=== PATIENT | female | born 1960 | race Caucasian/White ===

== ENCOUNTER 2017-11-21 13:28 | Day surgery (SDC) | payer OTHER, SELFPAY ==
[2017-11-18 10:40] VITALS: BMI 36.8
[2017-11-21 13:59] VITALS: BP 140/75; PULSE 75; RESP 16; TEMP 36.3; O2SAT 100; BMI 36.8
--- NOTE | 2017-11-21 15:34 | PM.PREOP ---
Pre-operative Note Interval Note Pre-op Check: History & Physical Reviewed by Physician
[2017-11-21] MEDS: CEFAZOLIN 2 GM/100 ML FROZ.PIGGY IV (15:39)
[2017-11-21] MEDS: BUPIVACAINE 0.25% W/ EPI 50 ML VIAL INJ (15:53)
--- NOTE | 2017-11-21 15:54 | SUR.OPER ---
Lithotomy on padded OR bed, head on pillow, arms secured on padded arm boards at <90 degrees abduction. Legs secured in padded yellow fins stirrups.
--- NOTE | 2017-11-21 16:39 | PM.GYNOP.1 ---
Operative Date/Time/Diagnoses - Date of procedure: 11/21/17 Time of procedure: 16:00 Pre-op diagnosis: Postmenopausal bleeding, suspected endometrial polyp Post-op diagnosis: other (Endometrial polyps) Procedure: Procedures Operation Date: 11/21/17 14:45 Actual Procedures Side Surgeon p Hysteroscopy D&C, Possible Polypectomy Not Applicable Balbina Orellana MD
--- NOTE | 2017-11-21 16:43 | PM.GYNOP.1 ---
Operative Date/Time/Diagnoses - Date of procedure: 11/21/17 Time of procedure: 16:00 Pre-op diagnosis: Postmenopausal bleeding, suspected endometrial polyp Post-op diagnosis: other (Endometrial polyps) Procedure: Procedures Operation Date: 11/21/17 14:45 Actual Procedures Side Surgeon p Hysteroscopy D&C, Possible Polypectomy Not Applicable Balbina Orellana MD Operative hysteroscopy, fractional dilation curettage, endometrial polypectomy Indications: The patient is a 57-year-old 5 para 4 abortus 1 female here for hysteroscopy, D&C, and possible polypectomy for further evaluation and management of approximately 1 year of brown vaginal discharge with an odor suggestive of postmenopausal bleeding. She also has intermittent bright red bleeding but feels this is more likely associated with her hemorrhoids. She has been menopausal since age 40-49 years. Her family history is notable for a mother diagnosed with endometrial cancer. She had a pelvic ultrasound performed, which was suggestive of a small endometrial polyp. The procedure, risks, benefits limitations, alternatives, and expectations were discussed; and the consent was reviewed and signed prior to the surgery. Surgeon: Balbina Orellana Service Desk Team Lead: Fabian Soto Anesthesia Type: General and Local Operative Notes Findings: Exam under anesthesia: Uterus is 6 weeks size and anteverted. No adnexal masses are noted. Operative findings: The cervix was stenotic in appearance but easily dilated to allow a 22 Arabic operative hysteroscope. The endometrial cavity was fully visualized including the tubal ostia. An approximately 7-8 mm, pedunculated polyp was noted within the right cornu. A flatter-appearing lesion was noted at the left cornu, left anterior fundus suggestive of a possible submucosal fibroid versus polyp versus endometrial tissue. Both of these lesions were removed in their entirety. At the completion of the surgery the endometrial cavity appeared completely normal. Closure Type: not applicable Specimen(s): endometrial curettings, endometrial polyp and other (endocervical curettings) Estimated blood loss (mL): 7 Blood products transfused: none Procedure in detail: The patient was taken to the operating room where general anesthesia with LMA was administered without difficulty. She was then placed in the high dorsal lithotomy position with her lower extremities in Yellofin stirrups. Exam under anesthesia was then performed with the findings as noted above. Perineum and vagina were then prepped and draped in a sterile fashion, and in-and-out catheterization was performed. Procedure Time-Out was performed. A sterile bivalve speculum was then placed. The posterior lip of the cervix was then grasped with a single-toothed tenaculum. Local anesthetic using 0.25% Marcaine with epinephrine was then injected at the 2:00, 4:00, 7:00, and 10:00 positions for a paracervical block. The cervix was then serially dilated until 7 mm 30-degree hysteroscope could be gently advanced to the uterine fundus. Using sterile saline for distention, the uterine cavity was visualized with the findings as noted above. Polyp forceps were then passed into the right cornu, and the majority of the polyp structure removed and placed on the field for pathology. Sharp curettage was then performed on all 4 amaro of the uterus, and this tissue was also sent for pathology. Endocervical curettage was then also performed. Repeat visualization with the diagnostic hysteroscope noted continued presence of polypoid tissue at the right cornu as well as the tissue at the left anterior fundus. The decision was therefore made to transition to an operative hysteroscopy. A larger 22 Arabic scope and port was then utilized as well as sorbitol for distention medium. Using loop cautery, the left cornual lesion was cauterized in an attempt to remove the tissue. However, it was sufficiently flimsy that it was not resected easily using the loop. Hysteroscopic graspers were then placed on the field and were utilized to remove any residual polyp from the right cornu as well as any residual tissue from the left anterior fundus/left cornea. At this point the hysteroscopic procedure was deemed complete and all instruments were removed from the endometrium. The tenaculum was then removed, and the tenaculum sites hemostatic with gentle pressure with a sponge-stick. At this point, the procedure was deemed complete. Sponge, lap, and needle count were correct x3. There were no complications. The patient was then taken to the recovery room in stable condition. Complications: none Post-operative Condition: stable Disposition: same day surgery Plan for aftercare: PACU then home
[2017-11-21 16:47] VITALS: BP 128/67; PULSE 75; RESP 16; TEMP 36.6; O2SAT 98
[2017-11-21 16:52] VITALS: BP 134/72; PULSE 74; RESP 14; O2SAT 98
[2017-11-21 16:55] VITALS: BP 143/73; PULSE 74; RESP 13; TEMP 36.2; O2SAT 99
[2017-11-21 17:23] VITALS: BP 155/83; PULSE 67; RESP 16; TEMP 36.8; O2SAT 99
[2017-11-21 17:55] VITALS: BP 150/82; PULSE 68; RESP 16; TEMP 36.9; O2SAT 100
== END 2017-11-21 18:03 ==
LOC: OR 13:29
PROVIDERS: Visit Provider Obstetrics & Gynecology
PROC: 0UDB8ZZ Extraction of Endometrium, Via Natural or Artificial Opening Endoscopic (ICD-10-PCS; CPT 58558; principal; 2017-11-21 14:45)
DX: N84.0 Polyp of corpus uteri (principal); I10 Essential (primary) hypertension
CPT/HCPCS: 58558; J0690; J1100; J1885; J2250; J2405; J2704; J3010

== ENCOUNTER 2022-08-20 11:50 | Outpatient (CLI) | payer OTHER, SELFPAY ==
[2022-08-20] VITALS (13 sets, daily range): BP systolic 132–166; BP diastolic 64–88; PULSE 51–70; RESP 8–54; TEMP 36.2–36.6; O2SAT 16–100; BMI 36.0
--- NOTE | 2022-08-20 | PATH_ITS ---
[facility] Accession Number: [id number] No. of containers..01 Tissue . 01 Material submitted: . liver - LEFT LOBE LIVER . 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 . MRV 08/26/2022 1625 Local . 01 Comment: The liver shows moderate degree of predominantly chronic inflammation of the portal tracts with extension beyond the limiting plates and foci of hepatocellular damage associated with chronic and occasionally neutrophilic/eosinophilic inflammation. The bile ducts are intact without proliferation or inflammation. Fatty change is not seen. Septal bridging fibrosis/cirrhosis is present. A reticulin stain highlights focal hepatic plates composed of two to three cells in thichkness. A PAS with diastase stain is negative for intracytoplasmic globules. An iron stain is within normal limits. A trichrome stain highlights the presence of fibrous septae. Given the patient's history of alcohol use and obesity, these factors may have contributed to the current findings. In addition, studies to rule out viral/biliary etiologies are recommended. . This case is also reviewed by Dr. Bernardo Eng, who concurs with the given interpretation. . 01 Electronically signed: . Kerry Mcguire MD, Pathologist NPI- [id number] . 01 Gross description: . The specimen is received in formalin labeled with the patient's name, , and no additional designation, and consists of five yañez needle core biopsies ranging in length from 0.3 cm to 1.3 cm and averaging 0.1 cm in greatest dimension. The specimen is submitted entirely in cassette A1. ([id number]) /FRR 08/21/[address] [place] [address] . 01 Pathologist provided ICD-10: R93.2 . 01 CPT . 851390, 149889, 718810, 186490, 985319 Performed at: [facility] [address] [place] [address], [place], [place] [id number] MD Guillaume Eng MD Phone: [phone]
--- NOTE | 2022-08-20 | DI.US.S_ITS ---
PROCEDURE: US BIOPSY LIVER Ultrasound-guided liver biopsy with sedation analgesia for approximately 30 minutes. INDICATIONS: ABNORMAL LIVER TECHNIQUE: The indications, alternatives, benefits, risks, and complications of the procedure were explained to the patient. Written informed consent was obtained and placed in the chart. Continuous EKG and hemodynamic monitoring was started by trained personnel. Real-time sonography was utilized to choose the site for percutaneous hepatic biopsy. The skin was prepped and draped in the usual sterile fashion. 1% lidocaine was infiltrated down to the hepatic capsule. A coaxial needle was then advanced into the liver under direct sonographic visualization. A biopsy apparatus was then utilized, and core biopsies were obtained. The needle was then withdrawn; a bandage and overlying weight were applied to the biopsy site. COMPARISON: None. FINDINGS: Biopsy site(s): Left hepatic lobe Needle: [employer] biopsy needle set. 20 gauge Number of passes: 5 Medications: 1% lidocaine for local anaesthesia. IV Versed and Fentanyl for conscious sedation for approximately 30 minutes (see nursing record). Complications: None. IMPRESSION: Successful ultrasound-guided liver biopsy, with pathology results pending. Dictated by: Manohar Jacques M.D. on 08/20/2022 at 17:55 Approved by: Manohar Jacques M.D. on 08/20/2022 at 17:57
[2022-08-20 13:18] LABS: Hematocrit 40.3 % (36-46); Hemoglobin 13.6 g/dL (12.0-16.0); Mean Corpuscular HGB Conc 33.8 % (30-36); Mean Corpuscular Hemoglobin 31.7 PG (26-34); Mean Corpuscular Volume 93.8 fL (80-100); Platelet Count 83 X10^3/uL (150-400); Red Blood Cell Count 4.29 X10^6/uL (4.0-5.2); Red Cell Distribution Width 13.8 % (11.6-14.8); White Blood Cell Count 3.4 X10^3/uL (4.5-11.0)
[2022-08-20 13:24] LABS: INR 1.1 (0.9-1.3); Prothrombin Time 12.6 SECONDS (10.1-12.7)
[2022-08-20 13:31] LABS: PTT Partial Thromboplastin Tim 40 SECONDS (26-36)
[2022-08-20] MEDS: fentaNYL 100 MCG/2 ML INJ IV (14:01)
[2022-08-20] MEDS: MIDAZOLAM 2 MG/2 ML VIAL IV (14:02)
[2022-08-20 17:14] LABS: Hematocrit 42.1 % (36-46)
--- NOTE | 2022-08-20 17:29 | SUR.PHASEII ---
DR LUNA NOTIFIED ON ORTHOSTATICS AND HCT OF 42.1 OK TO BE DISCHARGED.
== END 2022-08-20 17:40 | disposition home or self-care (01) ==
LOC: OR 11:52
PROVIDERS: Family Medicine; PCP Physician Assistant; Referring Provider Internal Medicine Gastroenterology; Visit Provider Internal Medicine Gastroenterology
DX: R93.2 Abnormal findings on diagnostic imaging of liver and biliary tract (principal)
CPT/HCPCS: 36415; 47000; 76942; 85014; 85027; 85610; 85730; J2250; J3010

== ENCOUNTER 2022-08-25 08:57 | Day surgery (SDC) | payer OTHER, SELFPAY ==
--- NOTE | 2022-08-25 | PATH_ITS ---
[facility] Accession Number: [id number] No. of containers..02 Tissue . 01 Material submitted: . PART A: colon - RIGHT COLON BIOSPIES PART B: colon - LEFT COLON BIOPSIES . 01 Diagnosis: A-B. Right, Left Colon, Biopsies: Colonic mucosa with no diagnostic abnormality. Negative for active, chronic, and microscopic colitis. Negative for dysplasia and malignancy. HERLINDA 08/30/2022 1210 Local . 01 Electronically signed: . Ramesh Gomes MD, PhD, Pathologist NPI- [id number] . 01 Gross description: . Part A: RIGHT COLON BIOSPIES: Received in formalin are 4 fragment(s) of yañez, soft tissue measuring 0.3 x 0.2 x 0.1 cm to 0.1 x 0.1 x 0.1 cm submitted entirely in 1 cassette(s) Part B: LEFT COLON BIOPSIES: Received in formalin are multiple fragment(s) of yañez, soft tissue measuring 0.5 x 0.5 x 0.1 cm in aggregate submitted entirely in 1 cassette(s) /CPE 08/27/2022 0900 Local . 01 Pathologist provided ICD-10: Z12.11, R93.2 . 01 CPT . 056819, 521824 Specimen Comment: A courtesy copy of this report has been sent to [phone] Performed at: 01 [facility] [address] [place] [address] [address], [place], [place] [id number] MD Guillaume Eng MD Phone: [phone]
[2022-08-25 09:39] VITALS: BP 134/74; PULSE 60; RESP 16; TEMP 36.9; O2SAT 99
[2022-08-25] MEDS: LACTATED RINGERS 1,000 ML 42 ML IV (09:41)
--- NOTE | 2022-08-25 10:49 | PM.HP.1 ---
History of Present Illness History of Present Illness Chief complaint: Colonoscopy Narrative: Occasional loose stools and need for colorectal cancer screening Patient History Medical History (Updated 11/18/17 @ 10:51 by Alejandra Ferrer RN) Abnormal uterine bleeding Acquired trigger finger Arthritis Borderline blood pressure Eczema Hemorrhoids Pain Postmenopausal Sinus drainage Surgical History (Updated 11/18/17 @ 10:45 by Alejandra Ferrer RN) History of carpal tunnel release of both wrists History of colonoscopy History of tonsillectomy Family & Social History Social History: household members spouse Tobacco & Substance use: Smoking Status Former smoker alcohol intake current alcohol intake frequency other Substance Use Type does not use Meds Home Medications and Allergies Home Medications Medication Instructions Recorded Confirmed Type No Known Home Medications 11/21/17 08/25/22 History Allergies Allergy/AdvReac Type Severity Reaction Status Date / Time No Known Drug Allergies Allergy Verified 08/20/22 12:52 Exam Vital Signs (past 8 hours): - 08/25/22 09:39 Temperature 98.5 F Pulse Rate 60 Respiratory Rate 16 Blood Pressure 134/74 Pulse Oximetry 99 Oxygen Delivery Method Room Air Oxygen Delivery Method Room Air Narrative Exam Narrative: Oropharynx free of lesions Chest clear to auscultation percussion Cardiac exam reveals no S3 or murmur Assessment & Plan Assessment & Plan narrative: Colonoscopy with biopsy and terminal ileoscopy to be performed for loose stools and for colon cancer screening. Risks, benefits, alternatives have been explained.
--- NOTE | 2022-08-25 10:50 | PM.OP.COLON ---
Operative Date/Time/Diagnoses Date of procedure: 08/25/22 Pre-op diagnosis: See indication and findings Procedure & Clinicians Study performed: Colonoscopy Indications: Occasional loose stools and need for colorectal cancer screening Surgeon: Elias German Procedure Notes Procedure in detail: After informed consent was obtained the patient was placed in left lateral decubitus position. The video colonoscope was introduced in the rectum slowly advanced cecum. Preparation was good. On slow withdrawal mucosa was carefully examined. The scope was removed. The patient tolerated procedure well. Blood loss none Complications none Sedation mac Findings 1. Unable to enter terminal ileum because of extensive hiccups. 2. Normal colonoscopy to cecum other than patchy erythema throughout. Biopsies taken in the right and left colon to rule out microscopic colitis 3. No colon polyps noted Will be in touch regarding the biopsy results and she will need follow-up with Dr. Smith. Follow-up colonoscopy in 10 years
[2022-08-25 11:26] VITALS: BP 124/79; PULSE 72; RESP 16; TEMP 36.5; O2SAT 97
[2022-08-25 11:31] VITALS: BP 125/60; PULSE 65; RESP 18; O2SAT 96
--- NOTE | 2022-08-25 11:33 | SUR.PHASEI ---
pt states she needs to go to the bathroom and instructed pt to wake up just a bit more. Offered her a bed rios but pt refused.
[2022-08-25 11:36] VITALS: BP 124/60; PULSE 61; RESP 18; O2SAT 97
[2022-08-25 11:38] VITALS: BP 129/63; PULSE 63; RESP 16; TEMP 36.4; O2SAT 97
== END 2022-08-25 12:04 | disposition home or self-care (01) ==
PROVIDERS: PCP Physician Assistant; Referring Provider Internal Medicine Gastroenterology; Visit Provider Internal Medicine Gastroenterology
PROC: 0DJD8ZZ Inspection of Lower Intestinal Tract, Via Natural or Artificial Opening Endoscopic (ICD-10-PCS; CPT 45378; principal; 2022-08-25 10:30)
DX: R15.2 Fecal urgency (principal); R19.7 Diarrhea, unspecified; R93.2 Abnormal findings on diagnostic imaging of liver and biliary tract
CPT/HCPCS: 45380; J2704

== ENCOUNTER → 2022-12-23 13:00 | Outpatient (CLI) | payer OTHER, SELFPAY ==
[2022-12-23 15:48] LABS: Add Manual Diff / Slide Review NO; Basophils Absolute Auto 0 /uL (0-100); Basophils Percent Auto 0.7 % (0-2); Eosinophils Absolute Auto 100 /uL (0-450); Eosinophils Percent Auto 2.5 % (2-4); Hematocrit 41.5 % (36-46); Hemoglobin 14.1 g/dL (12.0-16.0); Lymphocytes Absolute Auto 1400 /uL (1100-4500); Lymphocytes Percent Auto 32.3 % (25-40); Mean Corpuscular HGB Conc 33.9 % (30-36); Mean Corpuscular Hemoglobin 31.4 PG (26-34); Mean Corpuscular Volume 92.7 fL (80-100); Monocytes Absolute Auto 500 /uL (0-900); Monocytes Percent Auto 10.6 % (3-14); Neutrophils Absolute Auto 2400 /uL (1500-7000); Neutrophils Percent Auto 53.9 % (50-75); Platelet Count 93 X10^3/uL (150-400); Red Blood Cell Count 4.48 X10^6/uL (4.0-5.2); Red Cell Distribution Width 14.3 % (11.6-14.8); White Blood Cell Count 4.4 X10^3/uL (4.5-11.0)
[2022-12-23 16:01] LABS: INR 1.1 (0.9-1.3); Prothrombin Time 12.7 SECONDS (10.1-12.7)
[2022-12-23 16:16] LABS: Alanine Aminotransferase 27 IU/L (<35); Albumin 4.3 g/dL (3.5-5.0); Albumin Globulin Ratio 1.5 (1.0-2.8); Alkaline Phosphatase 71 U/L (38-126); Aspartate Aminotransferase 40 IU/L (14-36); Bilirubin Total 0.9 mg/dL (0.2-1.3); Blood Urea Nitrogen 11 mg/dL (7-17); Calcium 9.1 mg/dL (8.4-10.2); Carbon Dioxide 28 mmol/L (22-32); Chloride 104 mmol/L (98-107); Estimated Glomerular Filt Rate > 60 mL/min (>60); Globulin 2.8 g/dL (1.7-4.1); Glucose 81 mg/dL (80-110); HEMOLYSIS < 15 (0-50); Sodium 138 mmol/L (137-145); Total Protein 7.1 g/dL (6.3-8.2)
== END ==
PROVIDERS: PCP Physician Assistant; Referring Provider Internal Medicine Gastroenterology; Visit Provider Internal Medicine Gastroenterology
DX: E66.9 Obesity, unspecified (principal); Z12.11 Encounter for screening for malignant neoplasm of colon; R15.2 Fecal urgency; R93.2 Abnormal findings on diagnostic imaging of liver and biliary tract
CPT/HCPCS: 36415; 80053; 85025; 85610

== ENCOUNTER → 2023-09-13 09:37 | Outpatient (CLI) | payer MEDICARE, OTHER, SELFPAY ==
--- NOTE | 2023-09-13 09:40 | DI.RAD.S_ITS ---
PROCEDURE: XR DEXA AXIAL SKELETON INDICATIONS: Asymptomatic menopausal state COMPARISON: [facility], NILSON, DEXA AXIAL SKELETON, 07/31/2014, 13:23. FINDINGS: Lumbar Spine: Bone mineral density 1.012 g/cm2, T score -0.3. Left Hip: Bone mineral density 0.727 g/cm2, T score -1.8. Left Femoral Neck: Bone mineral density 0.647 g/cm2, T score -1.8. Right Hip: Bone mineral density 0.797 g/cm2, T score -1.2. Right Femoral Neck: Bone mineral density 0.678 g/cm2, T score -1.5. Fracture Risk Calculation (when applicable): 10-year fracture risk of a major osteoporotic fracture 8.2 % and of a hip fracture 0.8 %. (T score greater or equal to -1.0 to: NORMAL) (T score from -1.1 to -2.4: OSTEOPENIA) (T score less than or equal to -2.5: OSTEOPOROSIS) IMPRESSION: Osteopenia. Dictated by: Armando Carson M.D. on 09/15/2023 at 10:54 Approved by: Armando Carson M.D. on 09/15/2023 at 10:58
== END ==
PROVIDERS: PCP Family Medicine; Referring Provider Family Medicine; Visit Provider Family Medicine
DX: M85.89 Other specified disorders of bone density and structure, multiple sites (principal); Z13.820 Encounter for screening for osteoporosis; Z78.0 Asymptomatic menopausal state
CPT/HCPCS: 77080

== ENCOUNTER → 2023-10-11 13:55 | Outpatient (CLI) | payer MEDICARE, OTHER, SELFPAY ==
--- NOTE | 2023-10-11 13:56 | DI.MG.S_ITS ---
BILATERAL DIGITAL SCREENING MAMMOGRAM 3D/2D WITH CAD: 10/11/2023 CLINICAL: Routine screening. Comparison is made to exams dated: 06/16/2022 mammogram, 08/09/2017 mammogram, and 08/05/2014 mammogram - out side. Both breasts are almost entirely fatty (category a/<25% glandular tissue). Current study was also evaluated with a Computer Aided Detection (CAD) system. No significant masses, calcifications, or other findings are seen in either breast. There has been no significant interval change. IMPRESSION: NEGATIVE There is no mammographic evidence of malignancy. A 1 year screening mammogram is recommended. Based on the Tyrer Cuzick model (a risk assessment model) the patient's lifetime risk is 3.2% and her 10 year risk is 1.5%. According to the ACR, ACS, and NCCN guidelines, an annual breast MRI exam along with mammogram is recommended if the patient's lifetime risk is 20% or greater. This exam was interpreted at Station ID: [id number]. NOTE: For mammograms, a report in lay terms will be sent to the patient. Approximately 15% of breast malignancies will not be visualized mammographically. In the management of a palpable breast mass, a negative mammogram must not discourage biopsy of a clinically suspicious lesion. Electronically Signed By: Manohar klein/nataliya:10/11/2023 18:03:00 letter sent: Normal Exam ACR BI-RADS Category 1: Negative [id number]
== END ==
LOC: MAMMO 13:55
PROVIDERS: PCP Family Medicine; Referring Provider Family Medicine; Visit Provider Family Medicine
DX: Z12.31 Encounter for screening mammogram for malignant neoplasm of breast (principal); R92.313 Mammographic fatty tissue density, bilateral breasts
CPT/HCPCS: 77063; 77067

== ENCOUNTER → 2024-11-14 16:35 | Outpatient (CLI) | payer MEDICARE, OTHER, SELFPAY ==
--- NOTE | 2024-11-14 16:37 | DI.MG.S_ITS ---
MM screening mammo BI: 11/14/2024. BI-RADS: 1 CLINICAL: 64-year old female for bilateral screening mammogram. Tyrer-Cuzick lifetime risk of 2.5%. No personal or first-degree family history of breast cancer. PRIOR EXAMS 10/11/2023. MAMMOGRAPHY TECHNIQUE: 2D and 3D (tomosynthesis) digital mammographic views obtained, with additional images as needed for full coverage. Current study was also evaluated with a Computer Aided Detection (CAD) system. DENSITY A. The breasts are almost entirely fatty. MAMMOGRAPHY FINDINGS Bilateral: No suspicious mass, asymmetry, microcalcification, or other abnormality seen. IMPRESSION: * No evidence of malignancy. RECOMMENDATIONS Bilateral * Annual screening mammography. OVERALL ASSESSMENT CATEGORY BI-RADS-1: Negative. The [employer] recommends annual screening mammography beginning at age 40 for women with average risk of breast cancer. ELECTRONICALLY SIGNED: Omero Canales M.D. on 11/15/2024 at 02:04:40 PM PT Interpreting Station ID: [id number]
== END ==
LOC: MAMMO 16:37
PROVIDERS: PCP Family Medicine; Referring Provider Family Medicine; Visit Provider Family Medicine
DX: Z12.31 Encounter for screening mammogram for malignant neoplasm of breast (principal); R92.313 Mammographic fatty tissue density, bilateral breasts
CPT/HCPCS: 77063; 77067

== ENCOUNTER → 2025-02-26 12:53 | Outpatient (CLI) | payer MEDICARE, OTHER, SELFPAY ==
--- NOTE | 2025-02-26 13:01 | DI.RAD.S_ITS ---
PROCEDURE: XR RIBS LT MIN 3V W CXR1V INDICATIONS: RIB PAIN ON L SIDE TECHNIQUE: 2 views of the ribs were acquired, along with a single view chest. COMPARISON: None. FINDINGS: Surgical changes and devices: None. Bones and chest wall: No fractures or dislocations. No suspicious bony lesions. Overlying soft tissues appear unremarkable. Lungs and pleura: No pleural effusions or pneumothorax. Lungs appear clear. Mediastinum: Mediastinal contours appear normal. Heart size is normal. IMPRESSION: No displaced rib fracture or pneumothorax. Dictated by: Patrick Grimm M.D. on 02/26/2025 at 15:16 Approved by: Patrick Grimm M.D. on 02/26/2025 at 15:17
== END ==
PROVIDERS: PCP Family Medicine; Referring Provider Family Medicine; Visit Provider Family Medicine
DX: R07.81 Pleurodynia (principal)
CPT/HCPCS: 71101